=== PATIENT | male | born 1980 | race Two or more races ===

== ENCOUNTER 2016-09-19 23:56 | Emergency (ER) | payer SELFPAY ==
[~2016-09-19] VITALS: Ht 182.9 cm; Wt 127.0 kg
[2016-09-20 00:10] VITALS: BP 141/90
[2016-09-20] MEDS ORDERED: Dexamethasone 4mg/ml vial IVP ONE (00:15)
[2016-09-20] MEDS ORDERED: Ketorolac 30mg Inj IV ONE (00:15)
[2016-09-20 00:38] LABS: BASOPHILS % (AUTO) 1.3 % (0.0-2.0); EOSINOPHILS % (AUTO) 4.6 % (0.0-3.0); LYMPHOCYTES % (AUTO) 27.6 % (20.0-45.0); MEAN CORPUSCULAR HEMOGLOBIN 30.4 PG (27.0-31.0); MEAN CORPUSCULAR HGB CONC 34.9 G/DL (32.0-36.0); MEAN CORPUSCULAR VOLUME 87 FL (80-99); MEAN PLATELET VOLUME 7.1 FL (6.5-10.1); MONOCYTES % (AUTO) 8.2 % (1.0-10.0); NEUTROPHILS % (AUTO) 58.4 % (45.0-75.0); PLATELET COUNT 252 K/UL (150-450); RED BLOOD COUNT 4.98 M/UL (4.70-6.10); RED CELL DISTRIBUTION WIDTH 11.5 % (11.6-14.8); WHITE BLOOD COUNT 8.1 K/UL (4.8-10.8)
--- NOTE | 2016-09-20 00:43 | Emergency Room Report ---
History of Present Illness General Chief Complaint: Sore Throat Source: Patient Present Illness HPI 36YOM walk-in with 1 day sore throat, painful swallowing, pain on right side. Was given [place] by partner. Denies fever/chills, earache, headache, neck pain. Denies sick contacts. Allergies: Coded Allergies: No Known Allergies (Unverified , 09/20/16) Patient History Past Medical History: none Past Surgical History: none Pertinent Family History: none Social History: Denies: alcohol use, drug use, smoking Immunizations: UTD Reviewed Nursing Documentation: PMH: Agreed, PSxH: Agreed Nursing Documentation-PMH Past Medical History: No Stated History Review of Systems All Other Systems: negative except mentioned in HPI Physical Exam Vital Signs Date Time Temp Pulse Resp B/P Pulse Ox O2 Delivery O2 Flow Rate FiO2 09/20/16 00:02 98.2 72 18 141/90 96 Room Air Sp02 EP Interpretation: reviewed, normal General Appearance: normal inspection, well appearing, no apparent distress, alert, GCS 15, non-toxic Head: normocephalic, atraumatic Eyes: bilateral eye EOMI, bilateral eye PERRL ENT: normal ENT inspection, hearing grossly normal, normal pharynx, no angioedema, normal voice, TMs + canals normal, uvula midline, moist mucus membranes Neck: normal inspection, full range of motion, supple, no bony tend, other - Palpable tender right anterior lymph nodes Respiratory: normal inspection, lungs clear, normal breath sounds, no respiratory distress, no retraction, no wheezing Cardiovascular #1: regular rate, rhythm, no edema Gastrointestinal: normal inspection, normal bowel sounds, non tender, soft, no guarding, no hernia Genitourinary: no CVA tenderness Musculoskeletal: normal inspection, back normal, normal range of motion, Hemanth' s Sign negative Neurologic: normal inspection, alert, oriented x3, responsive, city council member III-XII nml as tested, motor strength/tone normal, speech normal Psychiatric: normal inspection, judgement/insight normal, mood/affect normal Skin: normal inspection, normal color, no rash Medical Decision Making Diagnostic Impression: Primary Impression: Sore throat ER Course Sore throat for 1 day - Afebrile, vitals stable - Soft tissue neck does not show epiglottitis or retropharyngeal abscess - Labs: No leuks - Improved with IV decadron, toradol - Feels much better. Less ttp on right anterior neck - ?viral pharyngitis - Rx ibuprofen, norco for severe pain - Return to ER for worsening symptoms Other X-Ray Diagnostic Results X-Ray ordered: Soft tissue neck # of Views/Limited Vs Complete: 2 View Interpretation: other - No epiglottitis. No retropharyngeal abscess Indication: Pain Impression: No acute disease Date Electronically Signed: Sep 20, 2016 Time Electronically Signed: 00:41 Interpreting ER Physician: Kristofer Last Vital Signs Date Time Temp Pulse Resp B/P Pulse Ox O2 Delivery O2 Flow Rate FiO2 09/20/16 00:10 98.2 72 18 141/90 96 Room Air Status: improved Disposition: HOME, SELF-CARE Referrals: NOT CHOSEN [facility]/,REFERRING (PCP) TATYANA GODINEZ M.D. Sep 20, 2016 00:43
[2016-09-20 00:49] LABS: ALBUMIN/GLOBULIN RATIO 1.6 (1.0-2.7); ANION GAP 15 (5-15); ASPARTATE AMINO TRANSFERASE 36 U/L (5-40); CALCIUM 9.3 mg/dL (8.6-10.2); CARBON DIOXIDE 25 mEQ/L (20-30); CHLORIDE 96 mEQ/L (98-107); GLOMERULAR FILTRATION RATE > 60 mL/min (>60); HEMOLYSIS 9; SODIUM 136 mEQ/L (135-145); TOTAL PROTEIN 7.3 g/dL (6.6-8.7)
[2016-09-20 01:01] LABS: ALANINE AMINOTRANSFERASE 62 U/L (3-41)
[2016-09-20] MEDS ORDERED: PREDNISONE50 MG ORAL (01:11)
[2016-09-20] MEDS ORDERED: NORCO 5-325 TA1 EACH ORAL (01:11)
[2016-09-20] MEDS ORDERED: IBUPROFEN800 MG ORAL (01:11)
[2016-09-20 01:15] VITALS: BP 131/84
[2016-09-20 03:41] LABS: BILIRUBIN,DIRECT 0.2 mg/dL (0.1-0.3)
--- NOTE | 2016-09-20 09:40 | Diagnostic Imaging Report ---
Indication: PAIN Technique: 2 views of the neck with soft tissue technique Comparison: None Findings: No prevertebral soft tissue swelling. No epiglottic swelling. Heart residual distention. No radiopaque foreign body. The bones are grossly unremarkable Impression: Negative
== END 2016-09-20 01:15 | disposition home or self-care (01) ==
LOC: EMR 09-20 00:32
DX: R07.0 Pain in throat (principal)
CPT/HCPCS: 36415; 70360; 80053; 82248; 85025; 96374; 96375; 99284; J1100; J1885

== ENCOUNTER 2017-01-04 11:44 | Emergency (ER) | payer SELFPAY ==
[~2017-01-04] VITALS: Ht 182.9 cm; Wt 131.5 kg
[~2017-01-04 11:44] MED LIST: IBUPROFEN800 MG ORAL; NORCO 5-325 TA1 EACH ORAL; PREDNISONE50 MG ORAL
[2017-01-04 12:29] VITALS: BP 138/82
[2017-01-04] MEDS: Albuterol ud Inhalation HHN SCH ×2 (12:40→12:56)
--- NOTE | 2017-01-04 13:12 | Emergency Room Report ---
History of Present Illness General Chief Complaint: Upper Respiratory Illness Source: Patient Present Illness HPI 36-year-old male presents to the emergency department complaining of cough with increased wheezing x3 days. He should denies fevers he reports chills. Eyes history of asthma, COPD or smoking. Patient reports wheezing upon exhalation which causes him to cough if he takes to deep of of breath. Patient reports increased mucus. He reports 3 days ago his symptoms started with only nasal congestion. Patient states he is up-to-date with vaccinations other than this years flu shot. [place] many people whom could have been sick. denies recent travel. Denies cardiac hx, or swelling of the lower extremities. Denies rash areas, abdominal pain, nausea, vomiting, neck pain or stiffness. Denies sore throat.Denies CP, Palpitations, LOC, AMS, dizziness, Changes in Vision, Sensation, paresthesias, or a sudden severe headache. Allergies: Coded Allergies: No Known Allergies (Unverified , 09/20/16) Patient History Past Medical History: see triage record Past Surgical History: none Pertinent Family History: none Immunizations: UTD Reviewed Nursing Documentation: PMH: Agreed, PSxH: Agreed Nursing Documentation-PMH Past Medical History: No Stated History Review of Systems All Other Systems: negative except mentioned in HPI Physical Exam Vital Signs Date Time Temp Pulse Resp B/P (MAP) Pulse Ox O2 Delivery O2 Flow Rate FiO2 01/04/17 11:49 97.5 75 18 138/82 95 Room Air Sp02 EP Interpretation: reviewed, normal General Appearance: no apparent distress, alert, GCS 15, non-toxic Head: normocephalic, atraumatic Eyes: bilateral eye normal inspection, bilateral eye PERRL ENT: hearing grossly normal, normal pharynx, no angioedema, normal voice, TMs + canals normal, uvula midline, moist mucus membranes Neck: full range of motion, no meningismus Respiratory: speaking full sentences, wheezing - bilateral wheezes Cardiovascular #1: regular rate, rhythm, no edema, normal capillary refill Musculoskeletal: back normal, gait/station normal, normal range of motion, non- tender Neurologic: alert, oriented x3, responsive, motor strength/tone normal, sensory intact, speech normal Psychiatric: judgement/insight normal, memory normal, mood/affect normal Skin: normal color, no rash, warm/dry, well hydrated Lymphatic: no adenopathy Medical Decision Making PA Attestation Dr. Sands is my supervising Physician whom patient management has been discussed with. Diagnostic Impression: Primary Impression: Bronchitis ER Course 36-year-old male presents to the emergency department complaining of cough with increased wheezing x3 days. He should denies fevers he reports chills. Eyes history of asthma, COPD or smoking. Patient reports wheezing upon exhalation which causes him to cough if he takes to deep of of breath. Patient reports increased mucus. He reports 3 days ago his symptoms started with only nasal congestion. Patient states he is up-to-date with vaccinations other than this years flu shot. Patient [place] and is around many people whom could have been sick. denies recent travel. Denies cardiac hx, or swelling of the lower extremities. Denies rash areas, abdominal pain, nausea, vomiting, neck pain or stiffness. Denies sore throat.Denies CP, Palpitations, LOC, AMS, dizziness, Changes in Vision, Sensation, paresthesias, or a sudden severe headache. Ddx considered but are not limited to URI, pneumonia, PE, strep pharyngitis, meningitis, Bronchitis, CHF just to name a few. Vital signs: Pt.is afebrile VS are WNL H&PE are most consistent with bronchitis ORDERS: none required at this time, the diagnosis is clinical ED INTERVENTIONS: -Albuterol Nebulized Treatment --Re-evaluation: upon re-evaluation wheezes have resolved, and lungs are CTA bilaterally. -d/w pt. follow up with PMD in 3-5 days, or return sooner to the ED with worsening or new symptoms. DISCHARGE: At this time pt. is stable for d/c to home. Will provide printed patient care instructions, and any necessary prescriptions. Care plan and follow up instructions have been discussed with the patient prior to discharge. Last Vital Signs Date Time Temp Pulse Resp B/P (MAP) Pulse Ox O2 Delivery O2 Flow Rate FiO2 01/04/17 13:08 82 18 98 Room Air 01/04/17 12:29 97.5 138/82 Disposition: HOME, SELF-CARE Condition: Stable Scripts Albuterol Sulfate* (ALBUTEROL SULFATE MDI*) 8.5 Gm Hfa.aer.ad 2 PUFF INH Q3H, #1 INH 0 Refills Prov: Rendon,Tea P.A. 01/04/17 Guaifenesin (Guaifenesin) 1,200 Mg Tab.er.12h 1200 MG PO BID for 10 Days, #20 TAB Prov: Tea Rendon 01/04/17 Codeine/Promethazine Hcl* (PROMETHAZINE-CODEINE SYRUP*) 118 Ml Syrup 10 ML ORAL Q6H, #240 ML 0 Refills Prov: Tea Rendon 01/04/17 Referrals: NOT CHOSEN [facility]/MD,REFERRING (PCP) Departure Forms: Return to Work Return to Work Date: Jan 07, 2017 Work Restrictions: None Return to Full Activity: Jan 08, 2017 Patient Instructions: Acute Bronchitis, [id number] Additional Instructions: Take medications as directed. Follow up with a Primary Care Provider in 3-5 days, even if your symptoms have resolved. --Please review list of primary care clinics, if you do not already have a primary care provider Return sooner to ED if new symptoms occur, or current symptoms become worse. Do not drink alcohol, drive, or operate heavy machinery while taking Cough Syrup as this may cause drowsiness. - Please note that this Emergency Department Report was dictated using [employer] clerk technology software, occasionally this can lead to erroneous entry secondary to interpretation by the dictation equipment. Tea Rendon Jan 04, 2017 13:12
[2017-01-04] MEDS ORDERED: PROMETHAZINE-C118 M1 ORAL (13:13)
[2017-01-04] MEDS ORDERED: GUAIFENESIN1200 MG PO (13:13)
[2017-01-04] MEDS ORDERED: ALBUTEROL SULF8.5 GM INH (13:13)
[2017-01-04 13:25] VITALS: BP 181/69
[2017-01-04 13:27] VITALS: BP 181/69
== END 2017-01-04 13:15 | disposition home or self-care (01) ==
LOC: EMR 12:27
DX: J40 Bronchitis, not specified as acute or chronic (principal)
CPT/HCPCS: 94640; 94664; 99284